=== PATIENT | female | born 1930 | race Caucasian/White ===

== ENCOUNTER 2016-12-15 21:08 | Inpatient (IN) | payer OTHER, BC ==
[~2016-12-15] VITALS: Ht 177.8 cm; Wt 113.2 kg
[~2016-12-15 21:08] MED LIST: CIPRO500 MG PO; GAVISCON EXTRA355 ML PO; IRON325 M1 PO; MOBIC15 MG PO; NORVASC5 MG PO; STOOL SOFTENER100 M1 PO; SYNTHROID125 MCG PO; ZESTRIL10 MG PO
[2016-12-16 06:07] VITALS: BP 138/77
[2016-12-16 12:47] LABS: HEMATOCRIT 34.6 % (36.0-46.0); MCV 96.9 FL (83-99)
[2016-12-16 15:31] VITALS: BP 146/70
[2016-12-16 19:29] VITALS: BP 143/65
[2016-12-16 23:36] VITALS: BP 129/59
[2016-12-17 03:53] VITALS: BP 149/67
[2016-12-17 07:24] VITALS: BP 129/61
[2016-12-17 07:26] LABS: ANION GAP 8 MEQ/L (2-14); CHLORIDE 105 MEQ/L (99-109); GFR ESTIMATE (CALCULATED) 27 mL/min/; GLUCOSE 125 mg/dL (70-99); POTASSIUM 4.8 MEQ/L (3.7-5.4); SAMPLE HEMOLYSIS CHECK 0; SAMPLE ICTERIC CHECK 0; SAMPLE LIPEMIA CHECK 0; SODIUM 136 MEQ/L (136-147); UREA NITROGEN (BUN) 35 mg/dL (9-23)
[2016-12-17] MEDS ORDERED: OXYCODONE HCL5 MG PO (09:35)
[2016-12-17] MEDS ORDERED: ELIQUIS2.5 MG PO (09:35)
[2016-12-17 11:16] VITALS: BP 135/62
[2016-12-17 12:28] LABS: MCV 97.2 FL (83-99)
[2016-12-17 16:23] VITALS: BP 132/60
[2016-12-17 19:48] VITALS: BP 126/58
[2016-12-17 23:10] VITALS: BP 121/57
[2016-12-18 03:44] VITALS: BP 131/58
[2016-12-18 06:52] LABS: HEMATOCRIT 26.8 % (36.0-46.0); MCV 97.5 FL (83-99)
[2016-12-18 07:14] VITALS: BP 126/56
[2016-12-18 07:40] LABS: ANION GAP 5 MEQ/L (2-14); CHLORIDE 105 MEQ/L (99-109); GFR ESTIMATE (CALCULATED) 41 mL/min/; GLUCOSE 112 mg/dL (70-99); POTASSIUM 5.4 MEQ/L (3.7-5.4); SAMPLE HEMOLYSIS CHECK 0; SAMPLE ICTERIC CHECK 0; SAMPLE LIPEMIA CHECK 0; SODIUM 136 MEQ/L (136-147); UREA NITROGEN (BUN) 29 mg/dL (9-23)
[2016-12-18 11:08] VITALS: BP 130/58
[2016-12-18 16:02] VITALS: BP 146/64
== END 2016-12-18 19:21 | disposition home or self-care (01) | DRG 470 ==
LOC: ENRESERV 21:08 → 3EAST 12-16 05:41 → 2SOUTH 12-16 05:41 → ENRESERV 12-16 13:12 → 2SOUTH 12-16 13:34 → 3EAST 12-16 15:28
PROVIDERS: Orthopaedic Surgery; Physician Assistant
PROC: 0SRB049 Replacement of Left Hip Joint with Ceramic on Polyethylene Synthetic Substitute, Cemented, Open Approach (ICD-10-PCS; principal; 2016-12-16)
DX: M16.12 Unilateral primary osteoarthritis, left hip (principal); M25.552 Pain in left hip; M24.7 Protrusio acetabuli; E66.9 Obesity, unspecified; R33.9 Retention of urine, unspecified; M81.0 Age-related osteoporosis without current pathological fracture; I10 Essential (primary) hypertension; E03.9 Hypothyroidism, unspecified; Z90.710 Acquired absence of both cervix and uterus; Z90.49 Acquired absence of other specified parts of digestive tract; Z68.35 Body mass index [BMI] 35.0-35.9, adult; Y79.2 Prosthetic and other implants, materials and accessory orthopedic devices associated with adverse incidents; Z79.899 Other long term (current) drug therapy; T84.091A Other mechanical complication of internal left hip prosthesis, initial encounter; Y92.234 Operating room of hospital as the place of occurrence of the external cause
CPT/HCPCS: 71010; 73501; 73522; 73560; 80048; 85014; 85018; 86850; 86900; 86901; 94799; 97530 GO; 97530 GP; C1713; J0131; J0330; J0690; J1100; J1170; J2250; J2405; J2710; J3010; J7040; J7050; J7120; Q0175